=== PATIENT | male | born 1975 | race Caucasian/White ===

== ENCOUNTER 2016-11-11 19:35 | Emergency (ER) | payer OTHER ==
--- NOTE | 2016-11-11 21:02 | XR ---
EXAMINATION TYPE: XR chest 1V portable DATE OF EXAM: 11/11/2016 8:56 PM COMPARISON: NONE INDICATION: Pain TECHNIQUE: Single frontal view of the chest is obtained. FINDINGS: The heart size is normal. The pulmonary vasculature is normal. The lungs are clear. IMPRESSION: 1. No acute pulmonary process.
--- NOTE | 2016-11-11 21:36 | ED ---
General Adult HPI - General Chief complaint: Shortness of Breath Stated complaint: SOB Sent by [facility] Time Seen by Provider: 11/11/16 20:43 Source: patient, RN notes reviewed Mode of arrival: ambulatory Limitations: no limitations - History of Present Illness Initial comments: This is a 40-year-old male who presents with the clinical pain to the left side chest after hitting his chest on a bedside table. Patient states he is sleeping in a hotel with her small bed and rolled out of bed hitting his chest on the end table. Patient states she has noticed redness and pain with deep breaths to this area ever since this happened. Patient also states earlier this afternoon he was eating a hamburger and started choking on a hamburger. Patient states this caused him to pass out and patient states his performed the Heimlich maneuver on him and after the foreign body was removed patient regained consciousness. Patient states he was told he was kneeling as he was choking and patient's family states he did not hit his head very hard. Patient states he feels great now and denies any nausea/vomiting, headache, blurry vision, diplopia, trouble walking, trouble talking. Patient states he feels like his normal self and he was just concerned about rib fracture today. She states she has had a nagging cough for 10 days that is dry. Patient denies any fever/chills, congestion, sore throat, otalgia or shortness of breath. Patient is on any anticoagulants. Patient has been taking Robitussin with codeine for his cough and this has been helping his symptoms. Patient denies any recent abdominal pain, back pain, numbness, tingling, hematuria, or any other complaints. - Related Data Home Medications Medication Instructions Recorded Confirmed Fexofenadine/Pseudoephedrine 1 tab PO DAILY 11/11/16 11/11/16 [Monique-D 24 Hour Tablet] Ibuprofen [Motrin] 800 mg PO Q8H PRN 11/11/16 11/11/16 Omeprazole [PriLOSEC] 20 mg PO DAILY 11/11/16 11/11/16 guaiFENesin-Coden 100-10MG/5ML 5 ml PO Q6HR PRN 11/11/16 11/11/16 [Robitussin AC] guaiFENesin-DM 600/30MG [Mucinex 1 tab PO Q12HR PRN 11/11/16 11/11/16 Dm] Previous Rx's Medication Instructions Recorded Albuterol Inhaler [Ventolin Hfa 1 - 2 puff INHALATION Q6HR #1 11/11/16 Inhaler] inhaler Allergies Allergy/AdvReac Type Severity Reaction Status Date / Time No Known Allergies Allergy Verified 11/11/16 20:18 Review of Systems ROS Statement: Those systems with pertinent positive or pertinent negative responses have been documented in the HPI. ROS Other: All systems not noted in ROS Statement are negative. Past Medical History Past Medical History: No Reported History History of Any Multi-Drug Resistant Organisms: None Reported Past Surgical History: No Surgical Hx Reported Past Psychological History: No Psychological Hx Reported Smoking Status: Never smoker Past Alcohol Use History: Occasional Past Drug Use History: None Reported General Exam - General Exam Comments Initial Comments: General: The patient is awake and alert, in no distress, and does not appear acutely ill. Eye: Pupils are equal, round and reactive to light, extra-ocular movements are intact. No nystagmus. There is normal conjunctiva bilaterally. No signs of icterus. Ears: TMs pink and pearly with intact cone of light bilaterally. Normal external ear canals Nose: Nasal turbinates pink and moist. Mouth and throat: There are moist mucous membranes and no oral lesions. Neck: The neck is supple, there is no tenderness or JVD. No cervical midline tenderness. Cardiovascular: There is a regular rate and rhythm. No murmur, rub or gallop is appreciated. Respiratory: Lungs are clear to auscultation, respirations are non-labored, breath sounds are equal. No wheezes, stridor, rales, or rhonchi. Musculoskeletal: There is mild tender to palpation of the left side chest wall that is reproducible. Normal ROM, Strength 5/5. Sensation intact. Radial Pulses equal bilaterally 2+. Neurological: A&O x 3. CN II-XII intact, There are no obvious motor or sensory deficits. Coordination appears grossly intact. Finger to nose test intact. Speech is normal. Skin: Skin is warm and dry and no rashes or lesions are noted. Psychiatric: Cooperative, appropriate mood & affect, normal judgment. Limitations: no limitations Course Vital Signs 11/11/16 20:04 Temperature 98.4 F Pulse Rate 90 Respiratory 20 Rate Blood Pressure 173/88 O2 Sat by Pulse 98 Oximetry Medical Decision Making - Medical Decision Making This is a 40-year-old male presents with pain to the chest after hitting his left side chest an end table in a history of hitting his head on the same end table. Patient also complains of cough. Patient also complains of loss of consciousness while choking on a piece of hamburger. Patient regained consciousness after hamburger and body was removed from the lungs be Heimlich maneuver. Patient denies any symptoms of worsening head injury. Discussed the risks and benefit of computed tomography scan and patient refuses computed tomography scan at this time as patient is comfortable with observation. Patient agrees to return to the [facility] for any worsening symptom and signs of head injury. On physical exam patient is neurologically intact. Patient's lungs are clear to auscultation bilaterally with no wheezing, rhonchi or rales. Patient has no cervical midline tenderness. There is mild tender to palpation of the left side chest wall is reproducible. Chest x-ray was done and reviewed showing: No acute pulmonary process. Reportedly Dr. Rodriguez. Patient requested an albuterol inhaler at this time as he thinks this will help with his cough. I discussed with patient to return parameters. Discussed that patient should continue Robitussin for symptoms of cough. Discussed that patient should follow up with PCP in one to 2 days or return to the [facility] for any worsening symptoms or for any further concerns. Patient was receptive to this plan and patient will be discharged home. Disposition Clinical Impression: Cough, Head injury, Contusion Disposition: HOME SELF-CARE Condition: Good Instructions: Acute Bronchitis (ED) Additional Instructions: Please use medication as discussed. Please follow-up with family doctor in the next 2 days of symptoms have not improved. Please return to emergency room if the symptoms increase or worsen or for any other concerns. Prescriptions: Albuterol Inhaler [Ventolin Hfa Inhaler] 1 - 2 puff INHALATION Q6HR #1 inhaler Referrals: None,Stated [REFERRING] - 1-2 days Time of Disposition: 21:38
[2016-11-11 21:44] VITALS: BP 144/67; PULSE 88; RESP 18; TEMP 98
== END 2016-11-11 21:43 | disposition home or self-care (01) ==
LOC: EC 19:35
DX: R05 Cough (principal); S09.90XA Unspecified injury of head, initial encounter; W19.XXXA Unspecified fall, initial encounter; Y92.511 Restaurant or cafe as the place of occurrence of the external cause; S20.212A Contusion of left front wall of thorax, initial encounter; W22.09XA Striking against other stationary object, initial encounter; Y92.59 Other trade areas as the place of occurrence of the external cause
CPT/HCPCS: 71010; 99284